=== PATIENT | female | born 1985 | race Caucasian/White ===

== ENCOUNTER 2024-07-01 19:47 | Emergency (ER) | payer OTHER ==
[2024-07-01] MEDS: HYDROmorphone 2 MG/ML SDV IM ONE (20:08)
[2024-07-01] MEDS: hydrOXYzine HCl 50 MG/ML SDV IM ONE (20:09)
== END 2024-07-01 20:50 | disposition home or self-care (01) ==
LOC: FB.ED 19:47
DX: S82.202D Unspecified fracture of shaft of left tibia, subsequent encounter for closed fracture with routine healing (principal)
CPT/HCPCS: 96372; 99283; J1170; J3410